=== PATIENT | female | born 1990 | race Caucasian/White ===

== ENCOUNTER 2016-06-10 20:07 | Emergency (ER) | payer MEDICAID, OTHER ==
[~2016-06-10] VITALS: Ht 157.5 cm; Wt 79.0 kg
[2016-06-10 20:09] VITALS: Ht 157.5 cm; Wt 79.0 kg
[2016-06-10] MEDS ORDERED: SOD CHLORIDE 0.9% 1,000 ML IV STA (20:37)
[2016-06-10] MEDS ORDERED: ONDANSETRON 4 MG INJ IV STA (20:37)
[2016-06-10] MEDS ORDERED: morphine 4 MG/ML VIAL IV STA (20:37)
[2016-06-10] MEDS ORDERED: ACET325T33 PO (20:43)
--- NOTE | 2016-06-10 20:44 | ERD ---
ER Documentation Chief Complaint Date/Time DATE: 06/10/16 TIME: 20:40 Chief Complaint bilateral upper abd pain, no v/d, c/o nausea HPI 25-year-old female presents here in emergency department for complaints of upper abdominal pain and nausea started today. Patient described the pain as sharp pain, 6/10 scale, accompanied with nausea and fever. Patient took over-the -counter Tylenol to fever control with markedly. Patient denies any hematuria or dysuria. Patient denies any flank pain. Patient denies any diarrhea or constipation. Patient denies any recent travel. Patient denies any sick contacts. ROS All systems reviewed and are negative except as per history of present illness. Medications Home Meds Active Scripts Hydrocodone/Acetaminophen (Blaine 5-325 Tablet) 1 Each Tablet, 1 TAB PO Q6H Y for SEVERE PAIN LEVEL 7-10, #20 TAB Prov:XAVIER LIMON NP 06/10/16 Magaldrate/Simethicone* (Mylanta*) 355 Ml Susp, 30 ML PO QID Y for GASTROINTESTINAL UPSET, #1 BOTTLE Prov:XAVIER LIMON NP 06/10/16 Omeprazole* (Omeprazole*) 20 Mg Capsule.dr, 20 MG PO DAILY, #30 Prov:XAVIER LIMON NP 06/10/16 Ondansetron (Ondansetron Odt) 4 Mg Tab.rapdis, 4 MG PO Q8 Y for NAUSEA AND/OR VOMITING, #30 TAB Prov:XAVIER LIMON NP 06/10/16 Phenazopyridine Hcl* (Pyridium*) 200 Mg Tab, 200 MG PO TID Y for URINARY PAIN, # 6 TAB Prov:XAVIER LIMON NP 06/10/16 Ciprofloxacin Hcl* (Ciprofloxacin Hcl*) 500 Mg Tablet, 500 MG PO BID for 10 Days , TAB Prov:XAVIER LIMON NP 06/10/16 Reported Medications Acetaminophen* (Tylenol*) Unknown Strength Tablet, PO Q6 Y for PAIN AND OR ELEVATED TEMP, #20 TAB 06/10/16 Allergies Allergies: Coded Allergies: No Known Allergy (Unverified , 06/10/16) PMhx/Soc Medical and Surgical Hx: pt denies Medical Hx, pt denies Surgical Hx FmHx Family History: No coronary disease, No diabetes, No other Physical Exam Vitals Vital Signs Date Time Temp Pulse Resp B/P Pulse Ox O2 Delivery O2 Flow Rate FiO2 06/11/16 01:11 98.4 88 20 100 Room Air 06/10/16 20:09 99.7 122 20 121/67 98 Physical Exam GENERAL: The patient is well developed and appropriate for usual state of health, in no apparent distress. CHEST: Clear to auscultation bilaterally. There are no rales, wheezes or rhonchi. HEART: Regular rate and rhythm. No murmurs, clicks, rubs or gallops. No S3 or S4. ABDOMEN: Soft, nontender and nondistended. Good bowel sounds. No rebound or guarding. No gross peritonitis. No gross organomegaly or masses. No Beltrán sign or McBurney point tenderness. BACK: No midline or flank tenderness. EXTREMITIES: Equal pulses bilaterally. There is no peripheral clubbing, cyanosis or edema. No focal swelling or erythema. Full range of motion. Grossly neurovascularly intact. NEURO: Alert and oriented. Cranial nerves 2-12 intact. Motor strength in all 4 extremities with 5/5 strength. Sensation grossly intact. Normal speech and gait. SKIN: There is no apparent rash or petechia. The skin is warm and dry. HEMATOLOGIC AND LYMPHATIC: There is no evidence of excessive bruising or lymphedema. No gross cervical, axillary, or inguinal lymphadenopathy. Result Diagram: 06/10/16211906/10/162119 Results 24 hrs Laboratory Tests Test 06/10/16 21:20 White Blood Count 7.310^3/ul Red Blood Count 4.3810^6/ul Hemoglobin 13.6g/dl Hematocrit 40.1% Mean Corpuscular Volume 91.6fl Mean Corpuscular Hemoglobin 31.1pg Mean Corpuscular Hemoglobin Concent 33.9g/dl Red Cell Distribution Width 13.1% Platelet Count 69306^3/UL Mean Platelet Volume 13.3fl Neutrophils % 80.2% Lymphocytes % 13.0% Monocytes % 6.2% Eosinophils % 0.4% Basophils % 0.1% Nucleated Red Blood Cells % 0.0/100WBC Neutrophils # 5.910^3/ul Lymphocytes # 1.010^3/ul Monocytes # 0.510^3/ul Eosinophils # 0.010^3/ul Basophils # 0.010^3/ul Nucleated Red Blood Cells # 0.010^3/ul Urine Color LT. YELLOW Urine Clarity CLOUDY Urine pH 6.5 Bedside Urine pH (LAB) 6.5 Urine Specific [place] 1.015 Bedside Urine Protein (LAB) Trace Bedside Urine Glucose (UA) Negative Urine Ketones NEGATIVE Bedside Urine Ketones (LAB) Negative Bedside Urine Blood 2+ Urine Nitrite NEGATIVE Bedside Urine Nitrite (LAB) Negative Urine Bilirubin NEGATIVE Urine Urobilinogen 0.2 E.U./dL Urine Leukocyte Esterase 1+ Bedside Urine Leukocyte Esterase (L 1+ Urine Microscopic RBC 2-5/HPF Urine Microscopic WBC 5-10/HPF Urine Squamous Epithelial Cells MANY Urine Bacteria MODERATE Urine Hemoglobin 2+ Urine Glucose NEGATIVE% Urine Total Protein NEGATIVE Sodium Level 140mmol/L Potassium Level 3.3mmol/L Chloride Level 97mmol/L Carbon Dioxide Level 28mmol/L Anion Gap 18 Blood Urea Nitrogen 11mg/dl Creatinine 0.68mg/dl Glucose Level 109mg/dl Calcium Level 8.9mg/dl Total Bilirubin 0.5mg/dl Direct Bilirubin 0.00mg/dl Indirect Bilirubin 0.5mg/dl Aspartate Amino Transf (AST/SGOT) 42IU/L Alanine Aminotransferase (ALT/SGPT) 79IU/L Alkaline Phosphatase 99IU/L Total Protein 8.3g/dl Albumin 4.4g/dl Globulin 3.90g/dl Albumin/Globulin Ratio 1.12 Lipase 63U/L Current Medications Medications (Trade) Dose Ordered Sig/Jonatan Route PRN Reason Start Time Stop Time Status Last Admin Dose Admin Sodium Chloride (NS) 1,000 ml @ 1,000 mls/hr Q1H STAT IV 06/10/16 20:37 06/10/16 21:36 DC 06/10/16 21:14 Morphine Sulfate (morphine) 4 mg ONCE STAT IV 06/10/16 20:37 06/10/16 20:39 DC 06/10/16 21:14 Ondansetron HCl 4 mg 4 mg ONCE STAT IV 06/10/16 20:37 06/10/16 20:39 DC 06/10/16 21:13 Ceftriaxone Sodium (Rocephin) 50 ml @ 100 mls/hr ONCE ONCE IVPB 06/10/16 22:30 06/10/16 22:59 DC 06/10/16 22:43 Acetaminophen (Tylenol Tab) 500 mg ONCE STAT PO 06/10/16 22:22 06/10/16 22:28 DC 06/10/16 22:43 Patient was given medication for pain here in emergency department, after treatment, patient verbalized feeling much better. Patient's pain is improved.Patient was given Zofran here in the emergency department. After treatment, patient was able to tolerate po fluids here in the emergency department without any vomiting. There is no signs and symptoms of dehydration. Normal saline IV bolus was given here in emergency department for rehydration, patient tolerated IV fluids. IV Rocephin was given here in emergency department for treatment for pyelonephritis. Patient tolerated procedure well.Patient was given medicines for fever control here in the emergency department. After treatment, patient temperature improved and lower. Patient appears well and is hemodynamically stable. INFLUENZA A & B BY EIA Final INFLU A&B BY EIA INFLUENZA A NEGATIVE (Ref Range Neg) INFLUENZA B NEGATIVE (Ref Range Neg) PROCEDURE: Abdominal ultrasound, limited. CLINICAL INDICATION: Abdominal pain. TECHNIQUE: Multiple real-time images were acquired of the patient's right upper abdomen utilizing a high resolution transducer. COMPARISON: None FINDINGS: The liver demonstrates increased echogenicity and size measuring 18.3 cm. There is no focal mass or intrahepatic biliary ductal dilatation. The portal vein is patent. The gallbladder is not distended. No gallstones are identified. There is no pericholecystic fluid or gallbladder wall thickening. The common bile duct measures mm in maximal dimension. The visualized portions of the pancreas are unremarkable. The pancreas is partially obscured by overlying bowel gas. No free fluid is identified. The right kidney is normal size and echogenicity measuring 10.1 cm. There is no focal renal mass or echogenic calculus identified. There is no obstructive uropathy. IMPRESSION: Enlarged liver with fatty infiltration. .Wilber Berrios MD, MD Date Time Electronically viewed and signed by .Wilber Berrios MD, MD on 06/10/2016 22:19 .T/ Procedures/MDM Medical Decision Making: Patient's symptoms like is consistent with pyelonephritis, patient has positive leukocytes in the urine and nausea and having fever. Influenza test is negative. Patient's upper abdominal pain can also be from gastritis. No gallbladder stones, lipase is normal, no symptoms of peritonitis, choledocholithiasis cholecystitis, or no kidney stones or septic stones noted. Low suspicion for bowel perforation. There is low suspicion for abdominal emergencies at this time. Patients abdominal exam is normal at this time. Patients radiology exam does not show any abdominal emergencies at this time. There is low suspicion for appendicitis, cholecystitis, abdominal aortic aneurysms or peritonitis at this time. There is low suspicion for sepsis. Patient appears well and is hemodynamically stable. Disposition: Home. Condition: Stable Prescription ciprofloxacin, Pyridium, Blaine, Zofran, Omeprazole, Mylanta Instructions: Patient is advised to take medications as prescribed. Patient is advised to rest, increase fluid intake and do brat diet for next 1-2 days and progress as tolerated. Patient is advised that if symptoms are worse, severe abdominal pain, uncontrolled vomiting, high fever, severe flank pain, worst signs and symptoms, to return to the emergency department immediately. Otherwise, patient can follow up with primary care doctor in 5-7 days. Departure Diagnosis: Primary Impression: Pyelonephritis Additional Impression: Abdominal pain Abdominal location: epigastric Qualified Code: R10.13 - Epigastric pain Condition: Stable Patient Instructions: Epigastric Pain (Uncertain Cause), Pyelonephritis Additional Instructions: Patient is advised to take medications as prescribed. Patient is advised to rest , increase fluid intake and do brat diet for next 1-2 days and progress as tolerated. Patient is advised that if symptoms are worse, severe abdominal pain , uncontrolled vomiting, high fever, severe flank pain, worst signs and symptoms , to return to the emergency department immediately. Otherwise, patient can follow up with primary care doctor in 5-7 days. XAVIER LIMON NP Jun 10, 2016 20:44
[2016-06-10 21:20] LABS: URINE BLOOD (Dip) POC 2+ (NEGATIVE)
[2016-06-10 21:48] LABS: ADD SCAN DIFF NO
[2016-06-10 21:50] LABS: BASOPHILS % 0.1 % (0.0-2.0); EOSINOPHILS % 0.4 % (0.0-7.0); HEMATOCRIT 40.1 % (37.0-47.0); HEMOGLOBIN 13.6 g/dl (12.0-16.0); MEAN CORPUSCULAR HEMOGLOBIN 31.1 pg (29.0-33.0); MEAN CORPUSCULAR HGB CONC 33.9 g/dl (32.0-37.0); MEAN CORPUSCULAR VOLUME 91.6 fl (82.0-101.0); MEAN PLATELET VOLUME 13.3 fl (7.4-10.4); MONOCYTE # 0.5 10^3/ul (0.3-0.9); MONOCYTES % 6.2 % (0.0-11.0); NEUTROPHIL # 5.9 10^3/ul (1.6-7.5); NEUTROPHILS % 80.2 % (39.0-77.0); PLATELET COUNT 139 10^3/UL (140-415); RED BLOOD COUNT 4.38 10^6/ul (4.20-5.40); RED CELL DISTRIBUTION WIDTH 13.1 % (11.5-14.5); WHITE BLOOD COUNT 7.3 10^3/ul (4.8-10.8)
[2016-06-10 21:59] LABS: ADD UMIC YES; URINE BILIRUBIN (Dip) NEGATIVE (NEGATIVE); URINE BLOOD (Dip) 2+ (NEGATIVE); URINE COLOR LT. YELLOW (YELLOW); URINE GLUCOSE (Dip) NEGATIVE (NEGATIVE); URINE KETONES (Dip) NEGATIVE (NEGATIVE); URINE LEUKOCYTE ESTERASE (Dip) 1+ (NEGATIVE); URINE NITRITE (Dip) NEGATIVE (NEGATIVE); URINE TOTAL PROTEIN (Dip) NEGATIVE (NEGATIVE); URINE UROBILINOGEN (Dip) 0.2 E.U./dL (0.1-1.0)
[2016-06-10 22:13] LABS: ALBUMIN 4.4 g/dl (3.3-4.9)
[2016-06-10 22:14] LABS: POTASSIUM 3.3 mmol/L (3.5-5.1)
[2016-06-10 22:16] LABS: ALBUMIN/GLOBULIN RATIO 1.12; BILIRUBIN,INDIRECT 0.5 mg/dl (0-1.1); BILIRUBIN,TOTAL 0.5 mg/dl (0.2-1.3); CREATININE 0.68 mg/dl (0.44-1.00); TOTAL PROTEIN 8.3 g/dl (6.1-8.1)
[2016-06-10 22:17] LABS: CALCIUM 8.9 mg/dl (8.4-10.2)
[2016-06-10 22:19] LABS: BACTERIA,URINE MODERATE; SQUAMOUS EPITHELIAL CELL,UR MANY
--- NOTE | 2016-06-10 22:19 | RADRPT ---
PROCEDURE: Abdominal ultrasound, limited. CLINICAL INDICATION: Abdominal pain. TECHNIQUE: Multiple real-time images were acquired of the patient's right upper abdomen utilizing a high resolution transducer. COMPARISON: None FINDINGS: The liver demonstrates increased echogenicity and size measuring 18.3 cm. There is no focal mass or intrahepatic biliary ductal dilatation. The portal vein is patent. The gallbladder is not distend ed. No gallstones are identified. There is no pericholecystic fluid or gallbladder wall thickening . The common bile duct measures mm in maximal dimension. The visualized portions of the pancreas are unremarkable. The pancreas is partially obscured by overlying bowel gas. No free fluid is iden tified. The right kidney is normal size and echogenicity measuring 10.1 cm. There is no focal renal mass or echogenic calculus identified. There is no obstructive uropathy. IMPRESSION: Enlarged liver with fatty infiltration. .Wilber Berrios MD, MD Date Time Electronically viewed and signed by .Wilber Berrios MD, MD on 06/10/2016 22:19 .T/
[2016-06-10] MEDS ORDERED: ACETAMINOPHEN 500 MG TAB PO STA (22:22)
[2016-06-10] MEDS ORDERED: HYDR-906 PO (22:28)
[2016-06-10] MEDS ORDERED: CIPR500T4 PO (22:28)
[2016-06-10] MEDS ORDERED: PHEN-538 PO (22:28)
[2016-06-10] MEDS ORDERED: MAG-19 PO (22:28)
[2016-06-10] MEDS ORDERED: ONDA4TAB14 PO (22:28)
[2016-06-10] MEDS ORDERED: OMEP20CA16 PO (22:28)
[2016-06-10] MEDS ORDERED: CEFTRIAXONE 1 GM/50 ML (PMX) 50 ML IVPB ONE (22:30)
[2016-06-11 01:11] VITALS: PULSE 88; RESP 20; TEMP 98.4
== END 2016-06-10 23:00 | disposition home or self-care (01) ==
LOC: FTE 20:07
DX: N12 Tubulo-interstitial nephritis, not specified as acute or chronic (principal); R10.13 Epigastric pain; R11.0 Nausea
CPT/HCPCS: 76705; 80053; 81001; 83690; 85025; 87086; 87400; J0696; J2270; J2405; J7030; Z7610; 36415; 81003; 96374; 96375

== ENCOUNTER 2016-11-03 | Emergency (ER) | payer MEDICAID ==
[~2016-11-03] VITALS: Ht 157.5 cm; Wt 83.0 kg
[~2016-11-03] MED LIST: ACET325T33 PO; CIPR500T4 PO; HYDR-906 PO; MAG-19 PO; OMEP20CA16 PO; ONDA4TAB14 PO; PHEN-538 PO
[2016-11-03 00:20] VITALS: Ht 157.5 cm; Wt 83.0 kg
[2016-11-03] MEDS ORDERED: IBUPROFEN 600 MG TAB PO ONE (03:00)
[2016-11-03] MEDS ORDERED: IBUP-1542 PO (03:22)
--- NOTE | 2016-11-03 03:29 | ERD ---
ER Documentation Chief Complaint Date/Time DATE: 11/03/16 TIME: 03:25 Chief Complaint Left Breast Pain X2 weeks HPI 6-year-old female patient with no significant past medical history presents to the ED complaining of intermittent left breast pain that started 2 weeks ago. Describes the pain as sharp and rates it a 10 out of 10. Denies any fever, chills, nausea, vomiting, chest pain, shortness of breath, wheezing, rashes, areolar discharge. Patient states that her last menses was last week. Denies being . ROS All systems reviewed and are negative except as per history of present illness. Medications Home Meds Active Scripts Ibuprofen* (Motrin*) 600 Mg Tab, 600 MG PO Q6, #30 TAB Prov:MICH PALACIOS PA-C 11/03/16 Hydrocodone/Acetaminophen (Anderson 5-325 Tablet) 1 Each Tablet, 1 TAB PO Q6H Y for SEVERE PAIN LEVEL 7-10, #20 TAB Prov:XAVIER LIMON NP 06/10/16 Magaldrate/Simethicone* (Mylanta*) 355 Ml Susp, 30 ML PO QID Y for GASTROINTESTINAL UPSET, #1 BOTTLE Prov:XAVIER LIMON NP 06/10/16 Omeprazole* (Omeprazole*) 20 Mg Capsule.dr, 20 MG PO DAILY, #30 Prov:XAVIER LIMON NP 06/10/16 Ondansetron (Ondansetron Odt) 4 Mg Tab.rapdis, 4 MG PO Q8 Y for NAUSEA AND/OR VOMITING, #30 TAB Prov:XAVIER LIMON NP 06/10/16 Phenazopyridine Hcl* (Pyridium*) 200 Mg Tab, 200 MG PO TID Y for URINARY PAIN, # 6 TAB Prov:XAVIER LIMON NP 06/10/16 Ciprofloxacin Hcl* (Ciprofloxacin Hcl*) 500 Mg Tablet, 500 MG PO BID for 10 Days , TAB Prov:XAVIER LIMON NP 06/10/16 Reported Medications Acetaminophen* (Tylenol*) Unknown Strength Tablet, PO Q6 Y for PAIN AND OR ELEVATED TEMP, #20 TAB 06/10/16 Allergies Allergies: Coded Allergies: No Known Allergy (Unverified , 06/10/16) PMhx/Soc History of Surgery: No Anesthesia Reaction: No Hx Neurological Disorder: No Hx Respiratory Disorders: No Hx Cardiac Disorders: No Hx Psychiatric Problems: No Hx Alcohol Use: No Hx Substance Use: No Hx Tobacco Use: No Smoking Status: Never smoker Physical Exam Vitals Vital Signs Date Time Temp Pulse Resp B/P Pulse Ox O2 Delivery O2 Flow Rate FiO2 11/03/16 00:20 98.2 80 20 121/81 97 Physical Exam Const: Cgw-jny-uknyetwou, well-nourished. In no acute distress. Head: Atraumatic, normocephalic Eyes: Normal Conjunctiva without injection. No purulent discharge. PERRL. EOMI ENT: Normal external ear. Ear canal without erythema. Tympanic membrane pearly henderson without effusion or bulging. Nasal canal clear with normal turbinates. Moist oropharynx without tonsillar exudates. Non-erythematous pharynx. Uvula midline. No drooling. No trismus. Neck: Full range of motion. No meningismus. No cervical lymphadenopathy. Resp: Clear to auscultation bilaterally. No wheezing, rhonchi, rales, or crackles. No accessory muscle use. No retractions. Cardio: Regular rate and rhythm. No murmurs, rubs or gallops. Breast: Tenderness palpation of the left areola. Erythema or edema. No purulent discharge. No warmth to touch. Abd: Soft, non tender, non distended. Normal bowel sounds. No palpable masses. No rebound tenderness. No guarding. Skin: No petechiae or rashes Back: No midline tenderness. No CVA tenderness. Ext: No cyanosis, or edema. Neur: Awake and alert. Psych: Normal Mood and Affect Results 24 hrs Current Medications Medications (Trade) Dose Ordered Sig/Jonatan Route PRN Reason Start Time Stop Time Status Last Admin Dose Admin Ibuprofen (Motrin) 600 mg ONCE ONCE PO 11/03/16 03:00 11/03/16 03:01 DC 11/03/16 03:16 Procedures/MDM 26-year-old female patient with no significant past medical history presents to the ED complaining of left breast pain that started intermittently for 2 weeks. Patient is afebrile and nontoxic-appearing. Patient has normal vital signs. A urine was ordered to further evaluate patient. Negative urine . Ibuprofen improved patient's pain. Patient was instructed to follow -up with her [facility] SUPERVISOR for outpatient management since there is no clinical appearance of deep space infection. At this time, there is no radiologist that will read a breast ultrasound. No erythema or fluctuance or induration. No edema. Patient is appropriate for outpatient management. Differential diagnosis considered include but is not limited to mastitis, fibroadenoma, cyst , fibrocystic changes, galactocele, fat necrosis, malignancy. Low suspicion for deep space infection, sepsis, cellulitis, or other emergent conditions. Discharge medications: Ibuprofen Follow up with primary care physician in 1-2 days. Instructed patient to return to the ED sooner for any worsening symptoms. Patient's questions were answered. Patient understood and agreed with discharge plan. Patient discharged stable. Departure Diagnosis: Primary Impression: Breast pain Condition: Stable Patient Instructions: Breast Anatomy, Breast Self-Exam (BSE) Referrals: COMMUNITY CLINICS YOU HAVE RECEIVED A MEDICAL SCREENING EXAM AND THE RESULTS INDICATE THAT YOU DO NOT HAVE A CONDITION THAT REQUIRES URGENT TREATMENT IN THE EMERGENCY DEPARTMENT. FURTHER EVALUATION AND TREATMENT OF YOUR CONDITION CAN WAIT UNTIL YOU ARE SEEN IN YOUR DOCTORS OFFICE WITHIN THE NEXT 1-2 DAYS. IT IS YOUR RESPONSIBILITY TO MAKE AN APPOINTMENT FOR FOLOW-UP CARE. IF YOU HAVE A PRIMARY DOCTOR --you should call your primary doctor and schedule an appointment IF YOU DO NOT HAVE A PRIMARY DOCTOR YOU CAN CALL OUR PHYSICIAN REFERRAL HOTLINE AT IF YOU CAN NOT AFFORD TO SEE A PHYSICIAN YOU CAN CHOSE FROM THE FOLLOWING [facility] CL[facility] [address] [facility]. [facility] [address] [place] [employer] [facility]. [facility] [address] [facility]. [facility] [address] [facility]. [facility] [address] [facility]. [facility]. [address] [facility]. [facility] YOU HAVE RECEIVED A MEDICAL SCREENING EXAM AND THE RESULTS INDICATE THAT YOU DO NOT HAVE A CONDITION THAT REQUIRES URGENT TREATMENT IN THE EMERGENCY DEPARTMENT. FURTHER EVALUATION AND TREATMENT OF YOUR CONDITION CAN WAIT UNTIL YOU ARE SEEN IN YOUR DOCTORS OFFICE WITHIN THE NEXT 1-2 DAYS. IT IS YOUR RESPONSIBILITY TO MAKE AN APPOINTMENT FOR FOLOW-UP CARE. IF YOU HAVE A PRIMARY DOCTOR --you should call your primary doctor and schedule and appointment IF YOU DO NOT HAVE A PRIMARY DOCTOR YOU CAN CALL OUR PHYSICIAN REFERRAL HOTLINE AT . IF YOU CAN NOT AFFORD TO SEE A PHYSICIAN YOU CAN CHOSE FROM THE FOLLOWING [facility] INSTITUTIONS: [facility] [address] [place] [address] [facility] [address] [place] [address] [facility] [address] [place] [address] [facility] URGENT CARE/SPECIALTIES [employer] [address] [facility] [address] [place] [phone] [address]ABUSLEME ABBY [address] [place] [place] [phone] [address] [place] [address] [address] [facility] [address] [facility], [address] [id number] [address] [place] [address] [facility] [address] [place], [place] [id number] [address] [facility] [id number] - [place] [address], [facility] [address] [address] [address] [facility] [address], [facility] [address] [address] [facility] [address] [place], [place] [phone] [facility] Hours: 8:00 am - 5:00 pm Additional Instructions: Call your primary care doctor TOMORROW for an appointment during the next 2-3 days for a referral to see an [facility]PER[employer]OR for further evaluation and treament of your breast pain.See the doctor sooner or return here if your condition worsens before your appointment time - fever, redness, warmth to touch, pus, discharge to breast etc. MICH PALACIOS PA-C Nov 03, 2016 03:29
[2016-11-03 03:38] VITALS: BP 122/82; PULSE 68; RESP 20
== END 2016-11-03 03:39 | disposition home or self-care (01) ==
LOC: FTE
DX: N64.4 Mastodynia (principal)
CPT/HCPCS: Z7502; Z7610; 99283